=== PATIENT | female | born 1935 | race African-American/Black ===

== ENCOUNTER 2021-11-21 13:36 | Emergency (ER) | payer OTHER ==
[~2021-11-21] VITALS: Ht 165.1 cm; Wt 85.0 kg
[2021-11-21] MEDS ORDERED: ASPIRIN 81MG TABLET PO ONE (14:15)
[2021-11-21] MEDS ORDERED: NITROGLYCERIN 0.4MG TABLET SL SL PRN (14:15)
[2021-11-21 16:29] LABS: BASOPHILS % 0.3 % (0.0-2.0); EOSINOPHILS % 1.8 % (0.0-5.0); HEMATOCRIT. 36.9 % (36.0-48.0); HEMOGLOBIN. 12.3 g/dL (12.0-16.0); LYMPHOCYTES % 17.2 % (20.0-50.0); MEAN CORPUSCULAR HEMOGLOBIN 30.9 pg (28.0-32.0); MEAN CORPUSCULAR VOLUME 92.8 fL (81.0-99.0); MEAN PLATELET VOLUME 9.8 fl (7.4-10.4); MONOCYTES % 8.5 % (2.0-8.0); NEUTROPHILS % 72.2 % (40.0-76.0); PLATELET 211 x1000/uL (130-400); RED BLOOD CELL COUNT 3.98 mill/uL (4.2-5.4); RED CELL DISTRIBUTION WIDTH 14.8 % (11.6-14.6)
[2021-11-21 16:33] LABS: CHLORIDE 101 mEq/L (98-107)
[2021-11-21 16:41] LABS: D-DIMER 1.49 mg/L FEU (<0.50); PARTIAL THROMBOPLASTIN TIME 29.2 sec (23.4-31.0); PROTHROMBIN TIME 10.8 sec (9.6-11.0)
[2021-11-21] MEDS: ASPIRIN 81MG TABLET PO NR ×3 (20:38→21:20)
[2021-11-21 22:26] VITALS: BP 135/88
== END 2021-11-21 22:27 | disposition short-term general hospital (02) ==
LOC: ER 13:36
DX: R07.9 Chest pain, unspecified (principal); J45.909 Unspecified asthma, uncomplicated; I10 Essential (primary) hypertension; Z88.6 Allergy status to analgesic agent; Z86.73 Personal history of transient ischemic attack (TIA), and cerebral infarction without residual deficits; Z20.822 Contact with and (suspected) exposure to COVID-19
CPT/HCPCS: 36415; 71045; 78582; 80053; 83880; 84484; 85025; 85379; 85610; 85730; 87426; 93005; 93970; 99285; A9540; A9558